=== PATIENT | male | born 1975 | race Caucasian/White ===

== ENCOUNTER 2018-05-15 05:15 | Day surgery (SDC) | payer BC ==
[~2018-05-15] VITALS: Ht 172.7 cm; Wt 68.0 kg
--- NOTE | 2018-05-15 08:44 | NUR ---
05/15/18 0844 Carmella Hurd 0813 PATIENT ARRIVES TO PACU SLEEPING, DOES NOT RESPOND TO VERBAL STIMULI. RESP EVEN AND UNLABORED, MASK AT 6 LITERS.
[2018-05-15] MEDS ORDERED: IBUPROFEN800 MG PO (09:52)
[2018-05-15] MEDS ORDERED: NORCO 5-325 TA1 EACH PO (09:52)
--- NOTE | 2018-05-15 10:05 | OR ---
[facility] [address], [place] [address] Signed DATE OF OPERATION: 05/15/2018 SURGEON: Neelam Huang MD PREOPERATIVE DIAGNOSIS: Fore scalp cyst. POSTOPERATIVE DIAGNOSIS: Fore scalp cyst. PROCEDURE: Excision of fore scalp cyst. ESTIMATED BLOOD LOSS: Minimal. INDICATIONS: Bryon is a 42-year-old gentleman, who has male pattern baldness. He also works on the [employer] the [place] [employer] [facility]. He has to wear a hat while he is at work. It rubs on the top of his head and he has developed fore cyst. Two in the front and two somewhat posteriorly, the two on the left are little larger, 1-2 cm. The other two are small less than a centimeter. He picked at one in the front on the right. It is a bit scarred in. I explained to Bryon and his that the scalp bleeds notoriously and if we do not get the entire cyst wall out, they simply return. Consequently, we decided to bring him over to the operating room. Under controlled conditions with the needle-tip cautery and the help of an OR nurse to get those out completely. I explained to him that the skin is often so thin over the cyst, we have to use simple nylon suture to close the skin and then we will remove the stitches later. He understands these are not cancer. They do not cause cancer or increase his risk for cancer. He can get recurrent cyst in the same or other locations. He had expressed understanding and wished to proceed. PROCEDURE NOTE: I met with Bryon and his in our preop area. We could all easily identify the fore cyst and we marked them appropriately with our pen. After this, Bryon was taken into the operating room and placed in the supine position under general LMA anesthesia. He was given preoperative antibiotics along with subcutaneous heparin. SCDs were utilized. He was then prepped and draped in the usual sterile fashion. We made our incision over each lesion with a #15 blade knife and extended that carefully with the needle-tip cautery. Then we used our small hemostats to very carefully and bluntly dissected out Electronically Signed By: NEELAM HUANG MD 05/15/18 1005 PATIENT NAME: BRYON GUTHRIE OPERATIVE REPORT DATE OF : 71 REPORT #: [id number] PHYSICIAN: NEELAM HUANG MD PCP: Tyree Hansen PA-C REPORT IS CONFIDENTIAL AND NOT TO BE RELEASED WITHOUT AUTHORIZATION [facility] [address], [place] [address] Signed each cyst including the entire cyst wall. Local anesthetic was injected into all four areas. The wounds were irrigated and suctioned out until clear. The skin edges were reapproximated with interrupted simple 4-0 nylon suture. All incisions were left open to air. After this, Bryon was awakened from his anesthesia, extubated in the OR, and taken to recovery room in stable condition. Neelam Huang MD ALB/MODL /[id number] cc: MD Tyree Nunez PA-C Copies: NEELAM HUANG MD, Michael J PA-C ~ Electronically Signed By: NEELAM HUANG MD 05/15/18 1005 PATIENT NAME: BRYON GUTHRIE OPERATIVE REPORT DATE OF : 71 REPORT #: [id number] PHYSICIAN: NEELAM HUANG MD PCP: Tyree Hansen PA-C REPORT IS CONFIDENTIAL AND NOT TO BE RELEASED WITHOUT AUTHORIZATION
== END 2018-05-15 11:30 | disposition home or self-care (01) ==
LOC: DS 05:15
PROVIDERS: Colon & Rectal Surgery
PROC: 0HB0XZZ Excision of Scalp Skin, External Approach (ICD-10-PCS; principal; 2018-05-15 06:45)
DX: L72.11 Pilar cyst (principal)
CPT/HCPCS: 00300; J0690; J1100; J1644; J2250; J2405; J2704; J3010; J7120